=== PATIENT | female | born 1950 | race Caucasian/White ===

== ENCOUNTER 2023-10-03 10:45 | Outpatient (AMB) | payer MEDICARE, BC, SELFPAY ==
--- NOTE | 2023-10-03 10:58 | MHC.OFFVIS ---
Intake Vital Signs 10/03/23 10:59 Height 5 ft 6 in Weight 156 lb 1.396 oz BMI 25.2 BP 124/72 Blood Pressure Location Rt brachial Position Sitting Pulse 106 H Pulse Source Pulse Oximeter Pulse Oximetry (%) 98 Oxygen Delivery Method Room Air Intake Visit Reasons: + RA Factor Intake Note: New patient presents today for consult. C/o generalized body pain. Symptoms started approx beginning of August Seen at [facility] had labs and x-rays, states she was diagnosed with arthritis. Was prescribed prednisone and celebrex Bat Person Required: No Accompanied by: Self / Same As Patient Allergies No Known Allergies Allergy (Verified 10/03/23 11:03) Medication List - Last Reconciled 10/03/23 by Andra Clark MD celecoxib 200 mg PO BID HPI HPI Comments History of Present Illness Details This is a 73-year-old female who presents for evaluation of arthritis. The condition started in August when she had abrupt onset of pain and stiffness of her arms and knees. She would have significant difficulty getting up from a chair or getting up from her bed. She was also having pain and stiffness in her wrists. The stiffness will last all day. She went to the emergency room and had bilateral knee x-rays done, she was told they were unremarkable, she was prescribed prednisone 20 mg daily for 7 days with 70% improvement. She was then evaluated by her PCP who gave her another course of prednisone with improvement. Currently she is on Celebrex 200 mg Twice daily with some improvement. She states that her left knee has been giving out on her and it yogi She states that since her 30s she has always had significant arthritis in her fingers, she could barely make a fist. She denies any skin rashes, no fevers, no weight loss. She denies history of psoriasis. And unaware of any family history of psoriasis. Denies history suggestive of uveitis. No history suggestive of IBD. [facility] Medical History Rheumatoid factor positive Elevated sed rate Pain in unspecified joint Generalized body aches Surgical History Hx of cholecystectomy Hx of section Family History Mother Dementia Diabetes Thyroid disease Father Parkinson disease Social History Household Members: Spouse and Children Alcohol intake: never Patient Tobacco Use Status: Never used Tobacco Female Reproductive History Menstrual Total pregnancies: 4 Full term: 4 Review of Systems Const Denies fever(s) and Denies weight loss Musc Reports deformity, Reports arthralgias, Reports joint swelling and Reports stiffness Skin/Breast Denies rash Physical Exam Vital Signs: Last Vital Signs Pulse 106 H 10/03/23 10:59 BP 124/72 10/03/23 10:59 Pulse Ox 98 10/03/23 10:59 Oxygen Delivery Method Room Air 10/03/23 10:59 BMI result Body Mass Index 25.2 Const General: cooperative, healthy appearing and comfortable Nutritional Appearance: average body habitus Orientation/consciousness: patient oriented x3 Limitations: no limitations HEENT Head: Yes normocephalic and Yes atraumatic Mouth: moist mucous membranes Resp Effort & Inspection: normal respiratory effort and able to speak in complete sentences Auscultation: clear to auscultation bilaterally Cardio Rate: regular rate Rhythm: regular rhythm Skin General skin exam: no rashes or lesions noted Neuro General: patient oriented x3 Extrem Other: Significant arthritic changes of both hands with squaring of 1st CMC joints Significant arthritis of PIP is and DIP is with limited flexion, no swelling however Right wrist pain with flexion and extension bilaterally Bilateral shoulder pain with full abduction Positive empty can test bilaterally Bilateral knee crepitus, more severe on the left Positive Ag's test on the left Normal nailfold capillaroscopy Possible muscle strength 5/5 all proximal muscle groups Assessment & Plan Assessment & Plan (1) Polyarthralgia: Code(s): M25.50 - Pain in unspecified joint Plan: This is a 73-year-old female who presents for evaluation of abrupt onset of diffuse joint pain and stiffness, mildly elevated ESR and positive rheumatoid factor. Symptoms responding to 20 mg of prednisone Will order comprehensive serology to screen for underlying autoimmune rheumatic disease. Check x-rays of involved joints Restart prednisone at 10 mg daily for 2 weeks then remain on 5 mg daily. Hold Celebrex while on prednisone (2) Internal derangement of left knee: Code(s): M23.92 - Unspecified internal derangement of left knee Plan: Left knee MRI ordered to evaluate for internal derangement Plan I spent 47 minutes reviewing patient's chart, evaluating patient, ordering diagnostic workup, counseling patient and documenting in the chart Orders: Orders MARIANNA Reflex Titer and Pattern Today M32.9 - Systemic lupus erythematosus, unspecified Anti Extractable Nuclear Ag Today M32.9 - Systemic lupus erythematosus, unspecified Anti DNA DS Antibody Today M32.9 - Systemic lupus erythematosus, unspecified Complement C3 Today M32.9 - Systemic lupus erythematosus, unspecified Complement C4 Today M32.9 - Systemic lupus erythematosus, unspecified C Reactive Protein Today M32.9 - Systemic lupus erythematosus, unspecified Comprehensive Met. Panel Today M32.9 - Systemic lupus erythematosus, unspecified Immunofixation Pnl, Serum Today M32.9 - Systemic lupus erythematosus, unspecified Protein Electrophoresis, Serum Today M32.9 - Systemic lupus erythematosus, unspecified T Spot TB Today Z11.7 - Encounter for testing for latent tuberculosis infection Cyclic Citrullinated Peptide Today M06.9 - Rheumatoid arthritis, unspecified XR knee LT 3V Today M06.9 - Rheumatoid arthritis, unspecified XR hand wrist RT Today M06.9 - Rheumatoid arthritis, unspecified Erythrocyte Sedimentation Rate Today M32.9 - Systemic lupus erythematosus, unspecified DNA Double Stranded-Crithidia Today M32.9 - Systemic lupus erythematosus, unspecified Protein Creatinine Ratio, Ur Today M32.9 - Systemic lupus erythematosus, unspecified Sjogren's Antibodies Today M32.9 - Systemic lupus erythematosus, unspecified UA w Microscopic Today M32.9 - Systemic lupus erythematosus, unspecified Complete Blood Count Auto Diff Today M32.9 - Systemic lupus erythematosus, unspecified Hepatitis A,B,C Profile Today Z11.59 - Encounter for screening for other viral diseases Uric Acid Today M10.9 - Gout, unspecified Rheumatoid Factor Today M06.9 - Rheumatoid arthritis, unspecified XR knee RT 3V Today M06.9 - Rheumatoid arthritis, unspecified XR knee standing BI Today M06.9 - Rheumatoid arthritis, unspecified XR hand wrist LT Today M06.9 - Rheumatoid arthritis, unspecified XR shoulder LT min 2V Today M06.9 - Rheumatoid arthritis, unspecified XR shoulder RT min 2V Today M06.9 - Rheumatoid arthritis, unspecified Creatine Kinase Total Today G72.9 - Myopathy, unspecified ANCA Vasculitides Today I77.6 - Arteritis, unspecified Aldolase Today G72.9 - Myopathy, unspecified MR knee LT wo con Today M23.92 - Unspecified internal derangement of left knee Medications: New prednisone 2 tabs daily for 2 weeks then remain on 1 tab daily 42 tabs 0RF Coding Level of Care Code New Pt Level 4 (02968) Diagnoses Polyarthralgia M25.50 Internal derangement of left knee M23.92
[2023-10-03 10:59] VITALS: BP 124/72; PULSE 106; O2SAT 98; BMI 25.2
== END 2023-10-03 11:44 | disposition home or self-care (01) ==
PROVIDERS: PCP Nurse Practitioner Family; Visit Provider Student in an Organized Health Care Education/Training Program
DX: M25.50 Pain in unspecified joint (principal); M23.92 Unspecified internal derangement of left knee
CPT/HCPCS: 99204

== ENCOUNTER 2023-10-03 10:45 | Outpatient (REF) | payer MEDICARE, SELFPAY ==
--- NOTE | ~2023-10-03 | XR_ITS ---
EXAM: X-RAYS BILATERAL KNEES CLINICAL INFORMATION: Rheumatoid arthritis, pain mostly left knee, everywhere. COMPARISON: None. TECHNIQUE: AP standing, tunnel, sunrise and lateral views of bilateral knees. RIGHT KNEE: The bones are diffusely demineralized. No significant joint effusion. Moderate narrowing of the medial compartment with medial marginal osteophytes. Small posterior patellar osteophytes. LEFT KNEE: Moderate narrowing of the medial compartment with medial marginal osteophytes. Advanced degenerative changes in the left patellofemoral compartment with hypertrophic change and loss of the joint space as well as subchondral sclerosis, particularly along the lateral aspect. Trace left effusion. XR/XR knee LT 4V IMPRESSION: Moderate degenerative changes in the medial compartments of bilateral knees. Marked degenerative changes in the left patellofemoral compartment.
--- NOTE | ~2023-10-03 | XR_ITS ---
EXAM: X-RAYS BILATERAL KNEES CLINICAL INFORMATION: Rheumatoid arthritis, pain mostly left knee, everywhere. COMPARISON: None. TECHNIQUE: AP standing, tunnel, sunrise and lateral views of bilateral knees. RIGHT KNEE: The bones are diffusely demineralized. No significant joint effusion. Moderate narrowing of the medial compartment with medial marginal osteophytes. Small posterior patellar osteophytes. LEFT KNEE: Moderate narrowing of the medial compartment with medial marginal osteophytes. Advanced degenerative changes in the left patellofemoral compartment with hypertrophic change and loss of the joint space as well as subchondral sclerosis, particularly along the lateral aspect. Trace left effusion. XR/XR knee RT 4V IMPRESSION: Moderate degenerative changes in the medial compartments of bilateral knees. Marked degenerative changes in the left patellofemoral compartment.
--- NOTE | ~2023-10-03 | XR_ITS ---
EXAMINATION: XR HAND/WRIST, RIGHT XR HAND/WRIST, LEFT CLINICAL INFORMATION: Rheumatoid arthritis. COMPARISON: None available. TECHNIQUE: PA, oblique, lateral, and scaphoid views of the right and left hand and wrist. FINDINGS: RIGHT HAND AND WRIST: Severe joint space narrowing with bony remodeling and marginal osteophytes at the triscaphe and 1st carpometacarpal joints. Additional severe joint space narrowing with central erosions throughout the interphalangeal joints with more mild joint space narrowing and small marginal osteophytes at the metacarpophalangeal joints. No periarticular erosion or osteopenia. No concerning lytic or blastic osseous lesion. No abnormal soft tissue calcification. LEFT HAND AND WRIST: Severe joint space narrowing with bony remodeling and marginal osteophytes at the triscaphe and 1st carpometacarpal joints. Additional severe joint space narrowing with central erosions and marginal osteophytes throughout the interphalangeal joints. More mild joint space narrowing with marginal osteophytes at the metacarpophalangeal joints. No periarticular erosion or osteopenia. No concerning lytic or blastic osseous lesion. No abnormal soft tissue calcification. XR/XR hand wrist LT IMPRESSION: 1. RIGHT HAND AND WRIST: Severe osteoarthritis at the triscaphe and 1st carpometacarpal joints with more mild osteoarthritis at the metacarpophalangeal joints. Central erosions throughout the interphalangeal joints consistent with erosive osteoarthritis. 2. LEFT HAND AND WRIST: Severe osteoarthritis at the triscaphe and 1st carpometacarpal joints with more mild osteoarthritis at the metacarpophalangeal joints. Central erosions throughout the interphalangeal joints, consistent with erosive osteoarthritis.
--- NOTE | ~2023-10-03 | XR_ITS ---
EXAMINATION: XR SHOULDER, RIGHT XR SHOULDER, LEFT CLINICAL INFORMATION: Bilateral shoulder pain. Rheumatoid arthritis. COMPARISON: None. TECHNIQUE: AP, Grashey, scapular Y, and axillary views of the right and left shoulder. FINDINGS: RIGHT SHOULDER: Mild acromioclavicular joint space narrowing with small marginal osteophytes. Tiny lateral subacromial spurs. Minimal glenohumeral joint space narrowing with tiny marginal osteophytes. No osseous erosion. No abnormal soft tissue calcification. No fracture or dislocation. LEFT SHOULDER: Mild acromioclavicular joint space narrowing with small marginal osteophytes. Tiny lateral subchondral spurs. Minimal glenohumeral joint space narrowing with tiny marginal osteophytes. No osseous erosion. No abnormal soft tissue calcification. No fracture or dislocation. XR/XR shoulder RT min 2V IMPRESSION: RIGHT SHOULDER: Mild acromioclavicular and minimal glenohumeral osteoarthritis. Tiny lateral subacromial spurs. LEFT SHOULDER: Mild acromioclavicular and minimal glenohumeral osteoarthritis. Tiny lateral subacromial spurs.
--- NOTE | ~2023-10-03 | XR_ITS ---
EXAMINATION: XR SHOULDER, RIGHT XR SHOULDER, LEFT CLINICAL INFORMATION: Bilateral shoulder pain. Rheumatoid arthritis. COMPARISON: None. TECHNIQUE: AP, Grashey, scapular Y, and axillary views of the right and left shoulder. FINDINGS: RIGHT SHOULDER: Mild acromioclavicular joint space narrowing with small marginal osteophytes. Tiny lateral subacromial spurs. Minimal glenohumeral joint space narrowing with tiny marginal osteophytes. No osseous erosion. No abnormal soft tissue calcification. No fracture or dislocation. LEFT SHOULDER: Mild acromioclavicular joint space narrowing with small marginal osteophytes. Tiny lateral subchondral spurs. Minimal glenohumeral joint space narrowing with tiny marginal osteophytes. No osseous erosion. No abnormal soft tissue calcification. No fracture or dislocation. XR/XR shoulder LT min 2V IMPRESSION: RIGHT SHOULDER: Mild acromioclavicular and minimal glenohumeral osteoarthritis. Tiny lateral subacromial spurs. LEFT SHOULDER: Mild acromioclavicular and minimal glenohumeral osteoarthritis. Tiny lateral subacromial spurs.
--- NOTE | ~2023-10-03 | XR_ITS ---
EXAMINATION: XR HAND/WRIST, RIGHT XR HAND/WRIST, LEFT CLINICAL INFORMATION: Rheumatoid arthritis. COMPARISON: None available. TECHNIQUE: PA, oblique, lateral, and scaphoid views of the right and left hand and wrist. FINDINGS: RIGHT HAND AND WRIST: Severe joint space narrowing with bony remodeling and marginal osteophytes at the triscaphe and 1st carpometacarpal joints. Additional severe joint space narrowing with central erosions throughout the interphalangeal joints with more mild joint space narrowing and small marginal osteophytes at the metacarpophalangeal joints. No periarticular erosion or osteopenia. No concerning lytic or blastic osseous lesion. No abnormal soft tissue calcification. LEFT HAND AND WRIST: Severe joint space narrowing with bony remodeling and marginal osteophytes at the triscaphe and 1st carpometacarpal joints. Additional severe joint space narrowing with central erosions and marginal osteophytes throughout the interphalangeal joints. More mild joint space narrowing with marginal osteophytes at the metacarpophalangeal joints. No periarticular erosion or osteopenia. No concerning lytic or blastic osseous lesion. No abnormal soft tissue calcification. XR/XR hand wrist RT IMPRESSION: 1. RIGHT HAND AND WRIST: Severe osteoarthritis at the triscaphe and 1st carpometacarpal joints with more mild osteoarthritis at the metacarpophalangeal joints. Central erosions throughout the interphalangeal joints consistent with erosive osteoarthritis. 2. LEFT HAND AND WRIST: Severe osteoarthritis at the triscaphe and 1st carpometacarpal joints with more mild osteoarthritis at the metacarpophalangeal joints. Central erosions throughout the interphalangeal joints, consistent with erosive osteoarthritis.
[2023-10-03 12:16] LABS: MANUAL DIFF FLAG NO
[2023-10-03 13:42] LABS: Basophils Percent Auto 0.2 % (0-2); Eosinophils Absolute Auto 0.1 X10*3/uL (0.0-0.4); Eosinophils Percent Auto 2.4 % (0-4); Hematocrit 41.7 % (37.0-47.0); Hemoglobin 13.8 g/dl (12.0-16.0); Imm Gran Abs Auto 0.03 X10*3/uL (0.00-0.03); Imm Gran Pct Auto 0.5 % (0.0-0.4); Lymphocytes Absolute Auto 0.8 X10*3/uL (1.2-4.9); Mean Corpuscular HGB Conc 33.1 g/dl (31.0-35.0); Mean Corpuscular Hemoglobin 27.7 pg (27.0-33.0); Mean Corpuscular Volume 83.6 fL (80.0-98.0); Mean Platelet Volume 10.3 fL (9.4-12.3); Monocytes Absolute Auto 0.5 X10*3/uL (0.1-1.2); Monocytes Percent Auto 8.2 % (2-11); Neutrophils Absolute Auto 4.1 x10*3/uL (2.0-8.3); Neutrophils Percent Auto 74.7 % (45-73); Platelet Count 231 X10*3/uL (160-400); Red Blood Count 4.99 X10*6/uL (4.20-5.50); Red Cell Distribution Width 13.5 % (11.0-16.0); White Blood Count 5.5 X10*3/uL (4.8-10.8)
[2023-10-03 14:01] LABS: Rheumatoid Factor < 13.0 IU/mL (<15.0)
[2023-10-03 14:05] LABS: Alanine Aminotransferase 10 U/L (0-31); Albumin Level 4.1 g/dL (3.5-5.0); Alkaline Phosphatase 95 U/L (39-117); Anion Gap 15 (12-20); Aspartate Amino Transferase 16 U/L (5-31); Bilirubin Total 0.5 mg/dL (0.0-1.0); Blood Urea Nitrogen 11 mg/dL (9-16); Calcium 9.5 mg/dL (8.4-10.2); Carbon Dioxide 22 mmol/L (22-29); Chloride 104 mmol/L (96-108); Estimated Glomerular Filt Rate 49; Glucose Random 134 mg/dL (60-115); Potassium 3.6 mmol/L (3.3-5.1); Sodium 137 mmol/L (135-145); Total Protein 7.7 g/dL (6.5-8.0); Uric Acid 6.4 mg/dL (2.4-5.7)
[2023-10-03 14:08] LABS: Appearance Urine Cloudy; Color Urine Dark Yellow; Glucose Urine UA Negative (Negative); Leukocyte Esterase Urine Small (1+) (Negative); Nitrite Urine Negative (Negative); PH 5.5 (5.0-9.0); Specific Gravity - Urine >= 1.030 (1.005-1.025); UMIC TRIGGER UA YES; Urine Blood Negative (Negative); Urine Ketones Trace mg/dL (Negative); Urine Protein 30 (1+) mg/dL (Neg-Trace)
[2023-10-03 14:20] LABS: Bacteria Urine None Seen (None Seen); RBC Urine 0-2 /HPF (0-2); WBC Urine 0-5 /HPF (0-5)
[2023-10-03 14:22] LABS: Erythrocyte Sedimentation Rate 34 MM/HR (0-20)
[2023-10-03 14:41] LABS: Total Protein Urine Random 65 mg/dL (<12)
[2023-10-04 07:04] LABS: HBS Num1 0.05 mIU/mL (0-7.99); HBc Num1 0.11 S/CO (0.00-0.79); HBsAGNum1 0.29 S/CO (0.00-0.99); Hepatitis A Antibody IgM 0.13 Index (0-0.79); Hepatitis B Core Antibody Nonreactive (Nonreactive); Hepatitis B Surface Antigen Negative (Negative); ~HepC Num1 0.09 S/CO (0.00-0.79); ~Hepatitis A Antibody IgM Nonreactive (Nonreactive); ~Hepatitis B Surface Antibody NONREACTIVE (Nonreactive); ~Hepatitis C Antibody Nonreactive (Nonreactive)
[2023-10-04 11:43] LABS: Complement C3 90 mg/dL (83-193)
[2023-10-04 12:34] LABS: Prot Elec - Alpha1 0.4 g/dL (0.2-0.3); Prot Elec - Alpha2 0.8 g/dL (0.5-0.9); Prot Elec - Beta 1 0.5 g/dL (0.4-0.6); Prot Elec - Beta 2 0.4 g/dL (0.2-0.5); Prot Elec - Gamma 1.1 g/dL (0.8-1.7); Prot Elec - Total Protein 7.2 g/dL (6.1-8.1)
[2023-10-04 12:58] LABS: Cyclic Citrullinated Peptide <16 UNITS
[2023-10-04 13:19] LABS: Anti DNA DS Antibody 1 IU/mL; Antibody to SS-A Antigen <1.0 NEG AI (<1.0 NEG); Antibody to SS-B Antigen <1.0 NEG AI (<1.0 NEG); Myeloperoxidase Antibody <1.0 AI; Proteinase 3 PR3 Antibodies <1.0 AI; SM/Ribonucleoprotein Ab <1.0 NEG AI (<1.0 NEG); Smith Protein <1.0 NEG AI (<1.0 NEG)
[2023-10-05 13:08] LABS: IgA 251 mg/dL (70-320); IgG 1212 mg/dL (600-1540); IgM 68 mg/dL (50-300)
[2023-10-06 08:28] LABS: TS Negative Control Passed; TS Panel A 0; TS Panel B 0; TS Positive Control Passed; TSpotTB Negative (Negative)
[2023-10-07 15:53] LABS: Anti Nuclear Antibody Screen NEGATIVE (NEGATIVE)
[2023-10-09 06:14] LABS: Aldolase 4.5 U/L (<=8.1)
[2023-10-09 06:33] LABS: DNAds, Crithidia Antibody Negative (Negative)
== END 2023-10-03 10:46 | disposition home or self-care (01) ==
LOC: HO.LAB 10:45
PROVIDERS: PCP Nurse Practitioner Family; Visit Provider Student in an Organized Health Care Education/Training Program
DX: M32.9 Systemic lupus erythematosus, unspecified (principal); M06.9 Rheumatoid arthritis, unspecified; M25.50 Pain in unspecified joint; M23.92 Unspecified internal derangement of left knee; M10.9 Gout, unspecified; G72.9 Myopathy, unspecified; I77.6 Arteritis, unspecified; Z11.7 Encounter for testing for latent tuberculosis infection; Z11.59 Encounter for screening for other viral diseases; Z72.89 Other problems related to lifestyle
CPT/HCPCS: 36415; 73030; 73110; 73130; 73564; 80053; 81001; 82085; 82550; 82570; 82784; 84156; 84165; 84550; 85025; 85652; 86021; 86038; 86140; 86160; 86200; 86225; 86235; 86255; 86334; 86431; 86481; 86704; 86706; 86709; 86803; 87340; 99202

== ENCOUNTER 2023-11-15 13:18 | Outpatient (REF) | payer MEDICARE, SELFPAY ==
--- NOTE | ~2023-11-15 | MR_ITS ---
EXAMINATION: MR KNEE WITHOUT CONTRAST, LEFT CLINICAL INFORMATION: Internal derangement. Patient reports pain. COMPARISON: X-ray 10/03/2023 TECHNIQUE: MRI of the knee without contrast was performed using routine sequences on a high-field scanner. FINDINGS: MENISCI: Medial Meniscus: Horizontal T2 signal in the posterior horn, contacting the free edge. Horizontal T2 signal in the body contacting the undersurface. This could represent meniscal tear. Lateral Meniscus: Degenerative fraying of the posterior root/central posterior horn. Degeneration pain the body with fraying along the inner aspect. LIGAMENTS: Cruciate: Intact Collateral: Intact EXTENSOR MECHANISM: Intact ARTICULAR CARTILAGE/BONE: Patellofemoral Compartment: High-grade/full-thickness cartilage loss in the central and medial aspect of the joint, involving both the patella and the femoral trochlea. Subchondral cystS/edema. Areas of cartilage thinning and heterogeneity otherwise present. Medial Compartment: Joint space loss. Chondral thinning in the weightbearing compartment. Lateral Compartment: Marginal osteophytes. Chondral heterogeneity and fissuring in the weightbearing compartment. JOINT FLUID AND BURSAE: Small effusion. No significant Pedroza's cyst. MR/MR knee LT wo con IMPRESSION: 1. Findings in the posterior horn and body of the medial meniscus, could represent meniscal tear. 2. Degenerative fraying of the posterior root/central posterior horn of the lateral meniscus. Degenerative fraying of the body. 3. Severe patellofemoral arthritis. Mild-moderate medial and lateral compartment arthritis. 4. Small effusion.
== END 2023-11-15 13:19 | disposition home or self-care (01) ==
LOC: HO.MRI 13:18
PROVIDERS: PCP Nurse Practitioner Family; Visit Provider Student in an Organized Health Care Education/Training Program
DX: M23.92 Unspecified internal derangement of left knee (principal)
CPT/HCPCS: 73721

== ENCOUNTER 2023-11-30 10:46 | Outpatient (AMB) | payer MEDICARE, SELFPAY ==
--- NOTE | 2023-11-30 11:34 | A.OFFVIS_ITS ---
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 MRI done. Patient reports bilateral knee pain with her left knee being the worse. Difficulty with stair use and will have a pressure on her knee. Her pain presented around August,, she was seen by her PCP who referred patient to Rheumatology and an MRI. She was also prescribed celebrex and prednisone which has provided her with some relief. Denies any injury. Allergies No Known Allergies Allergy (Verified 11/30/23 11:37) HPI HPI [employer] EQUIPMENT MECHANIC-meniscus derangements, meniscus, left knee: Details: 73-year-old female who presents to the office today for evaluation of left knee pain since August. She was seen by Rheumatology who rx Celebrex and prednisone which provided her mild relief. She also had an MRI which was significant for MMT. She has not had any recent injury. She currently states she has weakness and aches in her knee. She also experiences difficulty with stair use and feels pressure sensation in her knee. She does not have a history of diabetes. [facility] Medical History (Updated 12/02/23 @ 22:53 by Mary Lawson PA-C) Rheumatoid factor positive Elevated sed rate Pain in unspecified joint Generalized body aches Surgical History Hx of cholecystectomy Hx of section Family History Mother Dementia Diabetes Thyroid disease Father Parkinson disease Social History (Updated 11/30/23 @ 11:38 by CHRIS Huang) Household Members: Spouse and Children Alcohol intake: never Patient Tobacco Use Status: Never used Tobacco Current occupational status: unemployed Review of Systems Const All systems reviewed & are unremarkable except as noted in HPI and below Physical Exam Vital Signs: BMI result Body Mass Index 25.2 Const General: cooperative, healthy appearing, comfortable, no acute distress, well developed and alert Orientation/consciousness: patient oriented x3 HEENT Head: Yes normal to inspection, Yes normocephalic and Yes atraumatic Eyes General: appearance normal, both eyes and all related structures Resp Effort & Inspection: normal respiratory effort and able to speak in complete sentences Cardio Rate: regular rate Peripheral pulses: Peripheral pulses 2+ throughout GI Palpation (GI): Soft to palpation Skin Lesions: no lesions Rashes: no rashes Neuro General: patient oriented x3 Extrem Other: Left knee: Skin intact, no erythema or joint effusion. Tenderness along the medial and lateral joint line. Full ROM with crepitus. Negative Raven?s. No ligamentous laxity. NVI. Office Procedures Joint Injection/Drain Joint Injection/Drain Primary Site: left knee Prep: site was prepped using aseptic technique, ethochloride spray was applied and injection warnings given Injected: 80 mg of, DepoMedrol, with 8 mL of, 1% plain lidocaine and in the vamshi int Approach Used: anterolateral Procedure: The patient tolerated the procedure well and there was some relief with the local anesthesia Coding 22781 - Glenohumeral/Tronchanteric Bursa/Intraarticular Procedure code (CPT) selection complete Results Reviewed Results Reviewed: XR knee LT 4V 10/03/23 IMPRESSION: Moderate degenerative changes in the medial compartments of bilateral knees. Marked degenerative changes in the left patellofemoral compartment. MR knee LT wo con 11/15/23 IMPRESSION: 1. Findings in the posterior horn and body of the medial meniscus, could represent meniscal tear. 2. Degenerative fraying of the posterior root/central posterior horn of the lateral meniscus. Degenerative fraying of the body. 3. Severe patellofemoral arthritis. Mild-moderate medial and lateral compartment arthritis. 4. Small effusion. Assessment & Plan Assessment & Plan (1) Degeneration of meniscus of left knee: Code(s): M23.307 - Other meniscus derangements, unspecified meniscus, left knee Category: Medical (2) Osteoarthritis of left knee: Code(s): M17.12 - Unilateral primary osteoarthritis, left knee Category: Medical Plan We discussed options today which include steroid injection. They did consent to move forward with the left knee injection, which was tolerated well. I recommended rest, ice and elevation and OTC anti-inflammatories PRN for discomfort. If symptoms persist or worsens over the next 6-8 weeks, patient will contact the office, otherwise follow-up as needed. ? Patient Instructions: Scribed for Mary Lawson PA-C, by Oral Abhang, medical grade shoemaker, on 11/30/2023 at 11:15 AM EST.? I, Mary Lawson PA-C, have personally reviewed and agree with the information entered by the scribe. Coding Level of Care Code New Pt Level 3 (45912) Diagnoses Degeneration of meniscus of left knee M23.307 Osteoarthritis of left knee M17.12 CPT Codes Coding - Joint 7: 79851 - Glenohumeral/Tronchanteric Bursa/Intraarticular ([id number])
[2023-11-30 11:39] VITALS: BMI 25.2
== END 2023-11-30 12:17 | disposition home or self-care (01) ==
PROVIDERS: PCP Nurse Practitioner Family; Visit Provider Physician Assistant
DX: M23.304 Other meniscus derangements, unspecified medial meniscus, left knee (principal); M17.12 Unilateral primary osteoarthritis, left knee
CPT/HCPCS: 20610; 99203

== ENCOUNTER → 2023-11-30 10:46 | Outpatient (BNVA) | payer MEDICARE, SELFPAY | PROVIDERS: PCP Nurse Practitioner Family; Visit Provider Physician Assistant | DX: M23.307 Other meniscus derangements, unspecified meniscus, left knee (principal); M17.12 Unilateral primary osteoarthritis, left knee | CPT/HCPCS: 20610; 99202; J1010 ==

== ENCOUNTER 2023-12-18 10:44 | Outpatient (AMB) | payer MEDICARE, SELFPAY ==
--- NOTE | 2023-12-18 10:53 | MHC.OFFVIS ---
Vital Signs 12/18/23 10:57 Height 5 ft 6 in Weight 157 lb 6.561 oz BMI 25.4 BP 132/78 Blood Pressure Location Rt brachial Position Sitting Pulse 83 Pulse Source Pulse Oximeter Pulse Oximetry (%) 98 Oxygen Delivery Method Room Air Intake Visit Reasons: RA Accompanied by: Self / Same As Patient Allergies No Known Allergies Allergy (Verified 12/18/23 10:58) Medication List - Last Reconciled 12/18/23 by Andra Clark MD prednisone 5 mg PO DAILY HPI Comments Details: Patient returns for follow-up after completion of her diagnostic workup. She was evaluated by Orthopedics for her left knee and received a steroid injection which gave her some relief. Her overall joint pain and stiffness is much better. She is on prednisone 5 mg daily and she states that this controls her symptoms well without side effects. Initial history: This is a 73-year-old female who presents for evaluation of arthritis. The condition started in August when she had abrupt onset of pain and stiffness of her arms and knees. She would have significant difficulty getting up from a chair or getting up from her bed. She was also having pain and stiffness in her wrists. The stiffness will last all day. She went to the emergency room and had bilateral knee x-rays done, she was told they were unremarkable, she was prescribed prednisone 20 mg daily for 7 days with 70% improvement. She was then evaluated by her PCP who gave her another course of prednisone with improvement. Currently she is on Celebrex 200 mg Twice daily with some improvement. She states that her left knee has been giving out on her and it yogi She states that since her 30s she has always had significant arthritis in her fingers, she could barely make a fist. She denies any skin rashes, no fevers, no weight loss. She denies history of psoriasis. And unaware of any family history of psoriasis. Denies history suggestive of uveitis. No history suggestive of IBD. [facility] Medical History (Updated 12/18/23 @ 11:24 by Andra Clark MD) Elevated sed rate Pain in unspecified joint Generalized body aches Surgical History Hx of cholecystectomy Hx of section Family History Mother Dementia Diabetes Thyroid disease Father Parkinson disease Social History Household Members: Spouse and Children Alcohol intake: never Patient Tobacco Use Status: Never used Tobacco Current occupational status: unemployed Female Reproductive History Menstrual Total pregnancies: 4 Full term: 4 Review of Systems [facility] [place] Reports deformity, Denies arthralgias, Denies joint swelling and Denies stiffness Physical Exam Vital Signs: Last Vital Signs Pulse 83 12/18/23 10:57 BP 132/78 12/18/23 10:57 Pulse Ox 98 12/18/23 10:57 Oxygen Delivery Method Room Air 12/18/23 10:57 BMI result Body Mass Index 25.4 Const General: cooperative, healthy appearing and comfortable Nutritional Appearance: average body habitus Orientation/consciousness: patient oriented x3 Limitations: no limitations HEENT Head: Yes normocephalic and Yes atraumatic Mouth: moist mucous membranes Resp Effort & Inspection: normal respiratory effort and able to speak in complete sentences Cardio Rate: regular rate Rhythm: regular rhythm Skin General skin exam: no rashes or lesions noted Neuro General: patient oriented x3 Extrem Other: Significant arthritic changes of both hands with squaring of 1st CMC joints Significant arthritis of PIP is and DIP is with limited flexion, no swelling however No wrist tenderness to palpation, no swelling, no pain with flexion and extension bilaterally Normal range of motion of shoulders without pain Normal nailfold capillaroscopy Possible muscle strength 5/5 all proximal muscle groups Assessment & Plan Assessment & Plan (1) Polyarthralgia: Code(s): M25.50 - Pain in unspecified joint Category: Medical Plan: This is a 73-year-old female initially presented for evaluation of left onset of multiple joint pain including elbows, knees, significant stiffness, labs showed elevated inflammatory markers and borderline elevated moderate factor. Symptoms responding to prednisone. Patient has had progressive arthritis of her fingers since her 30s. But they were never painful. She never sought medical attention for those. Last visit, patient had pain and stiffness of her wrists, shoulders. Repeat labs showed elevated CRP, negative comprehensive serology. 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 There is some suspicion that patient has developed an inflammatory arthritis. Today patient is doing very well on prednisone 5 mg daily. Lower prednisone to 2.5 mg daily Labs before next visit in 3 months (2) Internal derangement of left knee: Code(s): M23.92 - Unspecified internal derangement of left knee Category: Medical Plan: Left knee MRI suspicious for a meniscal tear. She was evaluated by Orthopedics and received a steroid injection some improvement Plan I spent 27 minutes reviewing patient's chart, evaluating patient, ordering diagnostic workup, counseling patient and documenting in the chart Orders: Orders Complete Blood Count Auto Diff 3 Months M19.90 - Unspecified osteoarthritis, unspecified site C Reactive Protein 3 Months M19.90 - Unspecified osteoarthritis, unspecified site Erythrocyte Sedimentation Rate 3 Months M19.90 - Unspecified osteoarthritis, unspecified site Comprehensive Met. Panel 3 Months M19.90 - Unspecified osteoarthritis, unspecified site Coding Level of Care Code Est Pt Level 4 (62358) Diagnoses Polyarthralgia M25.50 Internal derangement of left knee M23.92
[2023-12-18 10:57] VITALS: BP 132/78; PULSE 83; O2SAT 98; BMI 25.4
== END 2023-12-18 11:18 | disposition home or self-care (01) ==
PROVIDERS: PCP Nurse Practitioner Family; Visit Provider Student in an Organized Health Care Education/Training Program
DX: M25.50 Pain in unspecified joint (principal); M23.92 Unspecified internal derangement of left knee
CPT/HCPCS: 99214

== ENCOUNTER → 2023-12-18 10:44 | Outpatient (BNVA) | payer MEDICARE, SELFPAY | PROVIDERS: PCP Nurse Practitioner Family; Visit Provider Student in an Organized Health Care Education/Training Program | DX: M25.50 Pain in unspecified joint (principal); M23.92 Unspecified internal derangement of left knee; Z79.52 Long term (current) use of systemic steroids | CPT/HCPCS: 99212 ==

== ENCOUNTER 2024-03-17 14:52 | Outpatient (REF) | payer MEDICARE, SELFPAY ==
[2024-03-17 15:32] LABS: MANUAL DIFF FLAG NO
[2024-03-17 16:11] LABS: Basophils Percent Auto 0.4 % (0-2); Eosinophils Absolute Auto 0.2 X10*3/uL (0.0-0.4); Eosinophils Percent Auto 3.3 % (0-4); Hematocrit 40.2 % (37.0-47.0); Hemoglobin 13.2 g/dl (12.0-16.0); Imm Gran Abs Auto 0.02 X10*3/uL (0.00-0.03); Imm Gran Pct Auto 0.4 % (0.0-0.4); Lymphocytes Absolute Auto 1.2 X10*3/uL (1.2-4.9); Lymphocytes Percent Auto 22.7 % (20-40); Mean Corpuscular HGB Conc 32.8 g/dl (31.0-35.0); Mean Corpuscular Hemoglobin 28.8 pg (27.0-33.0); Mean Corpuscular Volume 87.8 fL (80.0-98.0); Mean Platelet Volume 10.5 fL (9.4-12.3); Monocytes Absolute Auto 0.3 X10*3/uL (0.1-1.2); Monocytes Percent Auto 6.2 % (2-11); Neutrophils Absolute Auto 3.7 x10*3/uL (2.0-8.3); Platelet Count 201 X10*3/uL (160-400); Red Blood Count 4.58 X10*6/uL (4.20-5.50); Red Cell Distribution Width 13.6 % (11.0-16.0); White Blood Count 5.5 X10*3/uL (4.8-10.8)
[2024-03-17 16:44] LABS: Alanine Aminotransferase 8 U/L (0-31); Albumin Level 3.9 g/dL (3.5-5.0); Alkaline Phosphatase 88 U/L (39-117); Anion Gap 12 (12-20); Aspartate Amino Transferase 19 U/L (5-31); Bilirubin Total 0.5 mg/dL (0.0-1.0); Blood Urea Nitrogen 14 mg/dL (9-16); C Reactive Protein 0.19 mg/dL (< or = 0.50); Calcium 9.5 mg/dL (8.4-10.2); Carbon Dioxide 25 mmol/L (22-29); Chloride 107 mmol/L (96-108); Estimated Glomerular Filt Rate 36; Glucose Random 132 mg/dL (60-115); Potassium 4.2 mmol/L (3.3-5.1); Sodium 140 mmol/L (135-145); Total Protein 6.9 g/dL (6.5-8.0)
[2024-03-17 17:22] LABS: Erythrocyte Sedimentation Rate 16 MM/HR (0-20)
== END 2024-03-17 14:53 | disposition home or self-care (01) ==
LOC: HO.LAB 14:52
PROVIDERS: PCP Nurse Practitioner Family; Visit Provider Student in an Organized Health Care Education/Training Program
DX: M19.90 Unspecified osteoarthritis, unspecified site (principal)
CPT/HCPCS: 36415; 80053; 85025; 85652; 86140

== ENCOUNTER 2024-03-21 10:21 | Outpatient (AMB) | payer MEDICARE, SELFPAY ==
--- NOTE | 2024-03-21 11:35 | A.OFFVIS_ITS ---
Vital Signs 03/21/24 11:38 Height 5 ft 6 in Weight 157 lb 3.033 oz BMI 25.4 BP 124/80 Blood Pressure Location Rt brachial Position Sitting Pulse 78 Pulse Source Pulse Oximeter Pulse Oximetry (%) 98 Oxygen Delivery Method Room Air Intake Visit Reasons: OA/RA Intake Note: Patient presents for OA/RA. Allergies No Known Allergies Allergy (Verified 03/21/24 11:37) Medication List - Last Reconciled 03/21/24 by Andra Clark MD No Known Home Meds HPI Comments Details: 74-year-old female patient with generalized osteoarthritis and suspected mild early inflammatory arthritis who presents for follow-up. After last visit I advised patient to take prednisone 2.5 mg daily. She was having muscle cramps. She attributed it to prednisone and she discontinued it after 2 weeks. She states that over the last 2 months she has pains in different joints every day. Involving her knees, ankles, shoulders, hands. Usually worse in the morning, she usually has morning stiffness lasting 1 hour and sometimes lasts several hours. She would take Celebrex as needed for it and it usually takes care of her pain. No significant joint swelling that she noticed. Overall she is feeling better than she did 3-4 months ago. She states that she was recently evaluated by an charging car operator to advised her to request specific testing by her PCP. She was not referred to see a retina specialist Initial history: This is a 73-year-old female who presents for evaluation of arthritis. The condition started in August when she had abrupt onset of pain and stiffness of her arms and knees. She would have significant difficulty getting up from a chair or getting up from her bed. She was also having pain and stiffness in her wrists. The stiffness will last all day. She went to the emergency room and had bilateral knee x-rays done, she was told they were unremarkable, she was prescribed prednisone 20 mg daily for 7 days with 70% improvement. She was then evaluated by her PCP who gave her another course of prednisone with improvement. Currently she is on Celebrex 200 mg Twice daily with some improvement. She states that her left knee has been giving out on her and it yogi She states that since her 30s she has always had significant arthritis in her fingers, she could barely make a fist. She denies any skin rashes, no fevers, no weight loss. She denies history of psoriasis. And unaware of any family history of psoriasis. Denies history suggestive of uveitis. No history suggestive of IBD. [facility] Medical History Elevated sed rate Pain in unspecified joint Generalized body aches Surgical History Hx of cholecystectomy Hx of section Family History Mother Dementia Diabetes Thyroid disease Father Parkinson disease Social History Household Members: Spouse and Children Alcohol intake: never Patient Tobacco Use Status: Never used Tobacco Current occupational status: unemployed Female Reproductive History Menstrual Total pregnancies: 4 Full term: 4 Review of Systems [facility] Reports deformity, Reports arthralgias, Denies joint swelling and Reports stiffness Physical Exam Vital Signs: Last Vital Signs Pulse 78 03/21/24 11:38 BP 124/80 03/21/24 11:38 Pulse Ox 98 03/21/24 11:38 Oxygen Delivery Method Room Air 03/21/24 11:38 BMI result Body Mass Index 25.4 Const General: cooperative, healthy appearing and comfortable Nutritional Appearance: average body habitus Orientation/consciousness: patient oriented x3 Limitations: no limitations HEENT Head: Yes normocephalic and Yes atraumatic Mouth: moist mucous membranes Resp Effort & Inspection: normal respiratory effort and able to speak in complete sentences Cardio Rate: regular rate Rhythm: regular rhythm Skin General skin exam: no rashes or lesions noted Neuro General: patient oriented x3 Extrem Other: Significant arthritic changes of both hands with squaring of 1st CMC joints Significant arthritis of PIP is and DIP is with limited flexion, no swelling however No wrist tenderness to palpation, no swelling, no pain with flexion and extension bilaterally Normal range of motion of shoulders without pain Normal nailfold capillaroscopy Results Reviewed Results Reviewed: XR knee LT 4V 10/03/23 IMPRESSION: Moderate degenerative changes in the medial compartments of bilateral knees. Marked degenerative changes in the left patellofemoral compartment. MR knee LT wo con 11/15/23 IMPRESSION: 1. Findings in the posterior horn and body of the medial meniscus, could represent meniscal tear. 2. Degenerative fraying of the posterior root/central posterior horn of the lateral meniscus. Degenerative fraying of the body. 3. Severe patellofemoral arthritis. Mild-moderate medial and lateral compartment arthritis. 4. Small effusion. Assessment & Plan Assessment & Plan (1) Polyarthralgia: Code(s): M25.50 - Pain in unspecified joint Category: Medical Plan: This is a 74-year-old female initially presented for evaluation of left onset of multiple joint pain including elbows, knees, significant stiffness, labs showed elevated inflammatory markers . Symptoms responding to prednisone. Patient has had progressive arthritis of her fingers since her 30s. But they were never painful. She never sought medical attention for those. Repeat labs showed elevated CRP, negative comprehensive serology. 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 There is some suspicion that patient has developed mild case of inflammatory arthritis. She continues to have alternating and migratory joint pains, usually worse in the morning and associated with unable stiffness lasting from 1-4 hours. Symptoms however are quite minimal. She manages it with Celebrex only as needed. Discussed starting a DMARD. Discussed risks and benefits of hydroxychloroquine. At this time, patient would like to wait. Symptoms are improving. I asked patient to also seek evaluation by Ophthalmology/retina specialist prior to starting hydroxychloroquine Re-evaluate in 6 months. Labs before next visit Plan I spent 27 minutes reviewing patient's chart, evaluating patient,, counseling patient and documenting in the chart Orders: Orders Complete Blood Count Auto Diff 6 Months M06.9 - Rheumatoid arthritis, unspecified Erythrocyte Sedimentation Rate 6 Months M06.9 - Rheumatoid arthritis, unspecified Comprehensive Met. Panel 6 Months M06.9 - Rheumatoid arthritis, unspecified C Reactive Protein 6 Months M06.9 - Rheumatoid arthritis, unspecified Coding Level of Care Code Est Pt Level 4 (52445) Diagnoses Polyarthralgia M25.50
[2024-03-21 11:38] VITALS: BP 124/80; PULSE 78; O2SAT 98; BMI 25.4
== END 2024-03-21 12:15 | disposition home or self-care (01) ==
PROVIDERS: PCP Nurse Practitioner Family; Visit Provider Student in an Organized Health Care Education/Training Program
DX: M25.50 Pain in unspecified joint (principal)
CPT/HCPCS: 99214

== ENCOUNTER → 2024-03-21 10:21 | Outpatient (BNVA) | payer MEDICARE, SELFPAY | PROVIDERS: PCP Nurse Practitioner Family; Visit Provider Student in an Organized Health Care Education/Training Program | DX: M25.50 Pain in unspecified joint (principal) | CPT/HCPCS: 99212 ==

== ENCOUNTER 2025-02-05 12:23 | Outpatient (AMB) | payer MEDICARE, SELFPAY ==
[2025-02-05 12:33] VITALS: BP 128/72; PULSE 74; O2SAT 97; BMI 25.6
--- NOTE | 2025-02-05 12:33 | A.OFFVIS_ITS ---
Vital Signs 02/05/25 12:33 Height 5 ft 6 in Weight 158 lb 11.725 oz BMI 25.6 BP 128/72 Blood Pressure Location Lt brachial Position Sitting Pulse 74 Pulse Source Pulse Oximeter Pulse Oximetry (%) 97 Oxygen Delivery Method Room Air Intake Visit Reasons: OA/RA Intake Note: Patient presents for follow up on OA/RA. Allergies No Known Allergies Allergy (Verified 02/05/25 12:36) Medication List - Last Reconciled 02/05/25 by Kristy Ching MD celecoxib (Celebrex) 200 mg PO BID HPI Comments Details: Patient is a 74 y.o. male female with polyarticular OA c/b erosive OA here today for follow up Interval History: Patient last seen 03/21/[address] Clark - Followed up after prednisone trial - self discontinued due to muscle cramps which she attributed to the medication - did not want to proceed with DMARDs Today, - Doing well - Intermittently with left knee pain especially with walking up and down stairs - Uses celebrex 200mg prn for 2-4 days when she would get pain Rheumatologic History: Polyarticular/Erosive OA - responded to prednisone but patient did not want to continue with prednisone due to side effects Initial history: This is a 73-year-old female who presents for evaluation of arthritis. The condition started in August when she had abrupt onset of pain and stiffness of her arms and knees. She would have significant difficulty getting up from a chair or getting up from her bed. She was also having pain and stiffness in her wrists. The stiffness will last all day. She went to the emergency room and had bilateral knee x-rays done, she was told they were unremarkable, she was prescribed prednisone 20 mg daily for 7 days with 70% improvement. She was then evaluated by her PCP who gave her another course of prednisone with improvement. Currently she is on Celebrex 200 mg Twice daily with some improvement. She states that her left knee has been giving out on her and it yogi She states that since her 30s she has always had significant arthritis in her fingers, she could barely make a fist. She denies any skin rashes, no fevers, no weight loss. She denies history of psoriasis. And unaware of any family history of psoriasis. Denies history suggestive of uveitis. No history suggestive of IBD. Current Rheumatology Medication(s): Celebrex 200mg bud prn PFSH Medical History Elevated sed rate Pain in unspecified joint Generalized body aches Surgical History Hx of cholecystectomy Hx of section Family History Mother Dementia Diabetes Thyroid disease Father Parkinson disease Social History Household Members: Spouse and Children Alcohol intake: never Patient Tobacco Use Status: Never used Tobacco Current occupational status: unemployed Review of Systems Const Details: Review of Systems Constitutional: Denies fever, chills, weight loss ENT: Denies vision changes, eye pain or eye redness, dental caries, dry mouth GI: Denies nausea, vomiting, diarrhea, abdominal pain, change in BM Pulm: Denies SOB, BLACK, hemoptysis, wheezing Cards: Denies chest pain, palpitations Skin: Denies Raynaud's, rash, nail changes, photosensitivity, CONFERENCE ASSISTANT: Denies headaches, weakness, paresthesias, recurrent falls MSK: as per HPI All other systems reviewed and are unremarkable except noted above Physical Exam Exam Exam: Vital signs reviewed Physical Examination CONSTITUITIONAL Patient alert and cooperative. Well appearing and in no apparent painful distress MSK Hands * Right Hand: Unable to make a fist. No swelling or tenderness to palpation of these joints. * Left Hand: Unable to make a fist. No swelling or tenderness to palpation of these joints. * Prominent Herbedens nodes noted bilaterally and Bouchards nodes with deformities Wrists * Right Wrist: Full ROM. 70 degrees of wrist flexion, 80 degrees of wrist extension. No swelling or TTP * Left Wrist: Full ROM. 70 degrees of wrist flexion, 80 degrees of wrist extension. No swelling or TTP Elbows * Right Elbow: Full ROM. No swelling or TTP. No TTP of the medial and lateral epicondyles * Left Elbow: Full ROM. No swelling or TTP. No TTP of the medial and lateral epicondyles Shoulders * Right shoulder: Full ROM. No swelling noted. No TTP of the AC joint, subacromial bursa or posterior shoulder * Left shoulder: Full ROM. No swelling noted. No TTP of the AC joint, subacromial bursa or posterior shoulder Knees * Right knee: Full ROM. No swelling noted. No TTP of the knee joint lie or pes anserine bursa * Left knee: Full ROM. No swelling noted. No TTP of the knee joint lie or pes anserine bursa. * Crepitations felt bilaterally Ankles * Right ankle: Good ankle dorsiflexion and plantar flexion. No swelling. No TTP of the ankle joint * Left ankle: Good ankle dorsiflexion and plantar flexion. No swelling. No TTP of the ankle joint Feet * Right foot: Negative squeeze test * Left foot: Negative squeeze test Tender points? * No tenderness to palpation of the bilateral trapezius, supraspinatus, anterior costochondral junctions, bilateral suboccipital muscle insertions SKIN No rashes Vital Signs: BMI result Body Mass Index 25.6 Results Reviewed Results Reviewed: Laboratory Tests 10/03/23 03/17/24 12:14 15:31 WBC 5.5 RBC 4.58 Hgb 13.2 Hct 40.2 Plt Count 201 ESR 34 H 16 Sodium 140 Potassium 4.2 Chloride 107 Carbon Dioxide 25 BUN 14 Creatinine 1.42 H Calcium 9.5 Total Bilirubin 0.5 AST 19 ALT 8 C-Reactive Protein 0.19 XR Hands/Wrists 10/2023 FINDINGS: RIGHT HAND AND WRIST: Severe joint space narrowing with bony remodeling and marginal osteophytes at the triscaphe and 1st carpometacarpal joints. Additional severe joint space narrowing with central erosions throughout the interphalangeal joints with more mild joint space narrowing and small marginal osteophytes at the metacarpophalangeal joints. No periarticular erosion or osteopenia. No concerning lytic or blastic osseous lesion. No abnormal soft tissue calcification. LEFT HAND AND WRIST: Severe joint space narrowing with bony remodeling and marginal osteophytes at the triscaphe and 1st carpometacarpal joints. Additional severe joint space narrowing with central erosions and marginal osteophytes throughout the interphalangeal joints. More mild joint space narrowing with marginal osteophytes at the metacarpophalangeal joints. No periarticular erosion or osteopenia. No concerning lytic or blastic osseous lesion. No abnormal soft tissue calcification. IMPRESSION: 1. RIGHT HAND AND WRIST: Severe osteoarthritis at the triscaphe and 1st carpometacarpal joints with more mild osteoarthritis at the metacarpophalangeal joints. Central erosions throughout the interphalangeal joints consistent with erosive osteoarthritis. 2. LEFT HAND AND WRIST: Severe osteoarthritis at the triscaphe and 1st carpometacarpal joints with more mild osteoarthritis at the metacarpophalangeal joints. Central erosions throughout the interphalangeal joints, consistent with erosive osteoarthritis. XR Bilateral Knees 10/2023 RIGHT KNEE: The bones are diffusely demineralized. No significant joint effusion. Moderate narrowing of the medial compartment with medial marginal osteophytes. Small posterior patellar osteophytes. LEFT KNEE: Moderate narrowing of the medial compartment with medial marginal osteophytes. Advanced degenerative changes in the left patellofemoral compartment with hypertrophic change and loss of the joint space as well as subchondral sclerosis, particularly along the lateral aspect. Trace left effusion. IMPRESSION: Moderate degenerative changes in the medial compartments of bilateral knees. Marked degenerative changes in the left patellofemoral compartment. XR Bilateral Shoulders 10/2023 FINDINGS: RIGHT SHOULDER: Mild acromioclavicular joint space narrowing with small marginal osteophytes. Tiny lateral subacromial spurs. Minimal glenohumeral joint space narrowing with tiny marginal osteophytes. No osseous erosion. No abnormal soft tissue calcification. No fracture or dislocation. LEFT SHOULDER: Mild acromioclavicular joint space narrowing with small marginal osteophytes. Tiny lateral subchondral spurs. Minimal glenohumeral joint space narrowing with tiny marginal osteophytes. No osseous erosion. No abnormal soft tissue calcification. No fracture or dislocation. IMPRESSION: RIGHT SHOULDER: Mild acromioclavicular and minimal glenohumeral osteoarthritis. Tiny lateral subacromial spurs. MR Left Knee 10/2023 FINDINGS: MENISCI: Medial Meniscus: Horizontal T2 signal in the posterior horn, contacting the free edge. Horizontal T2 signal in the body contacting the undersurface. This could represent meniscal tear. Lateral Meniscus: Degenerative fraying of the posterior root/central posterior horn. Degeneration pain the body with fraying along the inner aspect. LIGAMENTS: Cruciate: Intact Collateral: Intact EXTENSOR MECHANISM: Intact ARTICULAR CARTILAGE/BONE: Patellofemoral Compartment: High-grade/full-thickness cartilage loss in the central and medial aspect of the joint, involving both the patella and the femoral trochlea. Subchondral cystS/edema. Areas of cartilage thinning and heterogeneity otherwise present. Medial Compartment: Joint space loss. Chondral thinning in the weightbearing compartment. Lateral Compartment: Marginal osteophytes. Chondral heterogeneity and fissuring in the weightbearing compartment. JOINT FLUID AND BURSAE: Small effusion. No significant Pedroza's cyst. IMPRESSION: 1. Findings in the posterior horn and body of the medial meniscus, could represent meniscal tear. 2. Degenerative fraying of the posterior root/central posterior horn of the lateral meniscus. Degenerative fraying of the body. 3. Severe patellofemoral arthritis. Mild-moderate medial and lateral compartment arthritis. 4. Small effusion. Assessment & Plan Assessment & Plan (1) Generalized osteoarthritis: Code(s): M15.9 - Polyosteoarthritis, unspecified Plan: #Polyarticular OA c/b erosive OA Patient is a 74 y.o. 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 Currently doing well on Celebrex PRN. Had a long discussion with patient about the diagnosis of osteoarthritis and erosive osteoarthritis. Discussed that there is no treatment for this and that sometimes immunosuppression does help but because they underlying pathology is not driven by the immune system immunosuppression is not always effective. She states that she is doing well overall and has no changes to her daily life. 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 of non-steroidal anti-inflammatories (NSAID) Plan: #Long-term Use of NSAIDs Discussed with patient the benefits and risk of NSAIDs for managing the rheumatic condition Benefits include: - Reduced the pain, improved mobility, and increased participation in activities Risks include: - GI upset, potential also worsening or formation (especially in patients > 65 years old) Recommended using proton pump inhibitors (PPIs) for the duration of NSAID use to reduce the risk of gastric ulcers Plan I spent 30 minutes reviewing the record and labs, taking a history, examining the patient, discussing the treatment plan, and documenting in the medical record Medications: New celecoxib (Celebrex) 200 mg PO BID 60 caps 5RF M15.9 - Polyosteoarthritis, unspecified Coding Level of Care Code Est Pt Level 4 (55598) Diagnoses Generalized osteoarthritis M15.9 Encounter for long-term (current) use of NSAIDs Z79.1
== END 2025-02-05 13:13 | disposition home or self-care (01) ==
LOC: HO.RHES 12:24
PROVIDERS: PCP Nurse Practitioner Family; Visit Provider Student in an Organized Health Care Education/Training Program
DX: M15.9 Polyosteoarthritis, unspecified (principal); Z79.1 Long term (current) use of non-steroidal anti-inflammatories (NSAID)
CPT/HCPCS: 99214

== ENCOUNTER 2025-02-05 12:23 | Outpatient (REF) | payer MEDICARE, SELFPAY ==
[2025-02-05 17:51] LABS: MANUAL DIFF FLAG NO
[2025-02-05 17:59] LABS: Hematocrit 42.4 % (37.0-47.0); Hemoglobin 14.6 g/dl (12.0-16.0); Imm Gran Abs Auto 0.02 X10*3/uL (0.00-0.03); Imm Gran Pct Auto 0.4 % (0.0-0.4); Lymphocytes Absolute Auto 1.2 X10*3/uL (1.2-4.9); Mean Corpuscular HGB Conc 34.4 g/dl (31.0-35.0); Mean Corpuscular Hemoglobin 30.8 pg (27.0-33.0); Mean Corpuscular Volume 89.5 fL (80.0-98.0); NRBC Abs Auto 0.000 X10*3/uL (0.0-0.012); NRBC Pct Auto 0.0 /100WBC (0.0-0.2); Platelet Count 194 X10*3/uL (160-400); Red Blood Count 4.74 X10*6/uL (4.20-5.50); White Blood Count 4.9 X10*3/uL (4.8-10.8)
[2025-02-05 18:08] LABS: Alanine Aminotransferase 9 U/L (0-31); Albumin Level 4.4 g/dL (3.5-5.0); Alkaline Phosphatase 78 U/L (39-117); Anion Gap 13 (12-20); Aspartate Amino Transferase 21 U/L (5-31); Blood Urea Nitrogen 15 mg/dL (9-16); Calcium 9.5 mg/dL (8.4-10.2); Carbon Dioxide 25 mmol/L (22-29); Chloride 106 mmol/L (96-108); Estimated Glomerular Filt Rate 46; Potassium 4.9 mmol/L (3.3-5.1); Sodium 139 mmol/L (135-145); Total Protein 7.3 g/dL (6.5-8.0)
== END 2025-02-05 12:24 | disposition home or self-care (01) ==
LOC: HO.HKASLDS 12:23
PROVIDERS: PCP Nurse Practitioner Family; Visit Provider Student in an Organized Health Care Education/Training Program
DX: M25.562 Pain in left knee (principal); M15.9 Polyosteoarthritis, unspecified; M15.4 Erosive (osteo)arthritis; Z79.1 Long term (current) use of non-steroidal anti-inflammatories (NSAID); Z79.899 Other long term (current) drug therapy
CPT/HCPCS: 36415; 80053; 85025; 85652; 86140; 99212